=== PATIENT | male | born 1945 | race Caucasian/White ===

== ENCOUNTER 2021-05-18 19:22 | Emergency (ER) | payer MEDICARE ==
[~2021-05-18] VITALS: Ht 157.5 cm; Wt 81.0 kg
[2021-05-18] MEDS ORDERED: LEVE500S9 PO (20:41)
[2021-05-18] MEDS ORDERED: PANT-31 PO (20:41)
[2021-05-18] MEDS ORDERED: MIRT-89 PO (20:41)
[2021-05-18] MEDS ORDERED: LACT30L PO (20:41)
[2021-05-18] MEDS ORDERED: ATEN-73 PO (20:41)
[2021-05-18] MEDS ORDERED: SENN-2 PO (20:41)
[2021-05-19 00:03] VITALS: BP 103/59
== END 2021-05-19 00:24 | disposition home or self-care (01) ==
LOC: EMS 19:29
DX: R51.9 Headache, unspecified (principal); E11.9 Type 2 diabetes mellitus without complications; E78.00 Pure hypercholesterolemia, unspecified; I10 Essential (primary) hypertension
CPT/HCPCS: 70450; 99284